=== PATIENT | female | born 1990 | race Caucasian/White ===

== ENCOUNTER 2017-03-01 00:29 | Emergency (ER) | payer SELFPAY ==
[~2017-03-01] VITALS: Ht 177.8 cm; Wt 62.1 kg
--- NOTE | 2017-03-01 00:58 | NUR ---
Patient discharged to home in stable conditon. Written and verbal after care instructions given. Patient verbalizes understanding of instructions. Ambulated from ER with stable gait. no acute distress noted. Patient will be driven home by boyfriend.
[2017-03-01 00:59] VITALS: BP 115/80
== END 2017-03-01 01:04 | disposition home or self-care (01) ==
LOC: ER 00:29
DX: T78.3XXA Angioneurotic edema, initial encounter (principal); Z88.0 Allergy status to penicillin
CPT/HCPCS: 99282; A4663